=== PATIENT | female | born 1950 | race Caucasian/White ===

== ENCOUNTER 2017-10-25 05:36 | Day surgery (SDC) | payer OTHER ==
[2017-10-25] MEDS ORDERED: CA CHLORIDE 10% 10 ML SYRINGE (07:00)
[2017-10-25] MEDS ORDERED: PROPOFOL 20 ML (07:01)
[2017-10-25] MEDS ORDERED: LIDOCAINE 2% (SDV) 5 ML INJ (07:01)
[2017-10-25] MEDS ORDERED: ONDANSETRON 4 MG INJ (07:01)
[2017-10-25] MEDS ORDERED: MIDAZOLAM 1 MG/ML 2 ML INJ (07:01)
[2017-10-25] MEDS ORDERED: DEXAMETHASONE 4 MG/ML 1 ML INJ (07:01)
[2017-10-25] MEDS ORDERED: FENTAnyl 50 MCG/ML VIAL (07:01)
[2017-10-25] MEDS ORDERED: FAMOTIDINE 20 MG INJ (07:01)
[2017-10-25] MEDS ORDERED: ROCURONIUM 50 MG INJ (07:30)
[2017-10-25] MEDS ORDERED: CEFAZOLIN 1 GM INJ (07:30)
[2017-10-25] MEDS: LIDOCAINE 1% (MPF) 30 ML INJ (07:37)
[2017-10-25] MEDS: BUPIVACAINE 0.25% (MPF) 30 ML INJ (07:37)
[2017-10-25] MEDS ORDERED: EPHEDrine 50 MG INJ (07:43)
[2017-10-25] MEDS ORDERED: SUGAMMADEX SODIUM 200 MG/2 ML VIAL IV (08:06)
[2017-10-25] MEDS: MEPERIDINE 25 MG INJ IV (09:44)
[2017-10-25] MEDS: KETOROLAC 30 MG INJ IV (09:44)
[2017-10-25] MEDS ORDERED: HYDROmorphONE 1 MG/5 ML IV SYRINGE IV (10:00)
[2017-10-25] MEDS ORDERED: morphine (1 MG/ML) 10ML SYRINGE IV (10:00)
[2017-10-25] MEDS ORDERED: FENTAnyl 50 MCG/ML VIAL IV (10:00)
[2017-10-25] MEDS ORDERED: ONDANSETRON 4 MG INJ IV (10:00)
== END 2017-10-25 13:00 | disposition home or self-care (01) ==
LOC: SDS 05:36
DX: M21.612 Bunion of left foot (principal); M20.42 Other hammer toe(s) (acquired), left foot; I10 Essential (primary) hypertension; E78.5 Hyperlipidemia, unspecified
CPT/HCPCS: 28285